=== PATIENT | female | born 1975 | race Caucasian/White ===

== ENCOUNTER 2020-10-21 14:13 | Emergency (ER) | payer BC ==
[~2020-10-21] VITALS: Ht 167.6 cm; Wt 226.8 kg
[2020-10-21] MEDS ORDERED: CEPH500 PO (15:26)
[2020-10-21] MEDS ORDERED: Prednisone20 MG PO (15:26)
== END 2020-10-21 15:35 | disposition home or self-care (01) ==
LOC: ER 14:13
DX: L08.9 Local infection of the skin and subcutaneous tissue, unspecified (principal); B96.89 Other specified bacterial agents as the cause of diseases classified elsewhere; L25.9 Unspecified contact dermatitis, unspecified cause; I10 Essential (primary) hypertension; E78.5 Hyperlipidemia, unspecified
CPT/HCPCS: 99282